=== PATIENT | male | born 1950 | race Caucasian/White ===

== ENCOUNTER 2017-08-17 17:13 | Emergency (ER) | payer OTHER ==
[2017-08-17] MEDS ORDERED: IPRATROPIUM/ALBUTEROL 3 ML DEYVIAL IH ONE (17:50)
--- NOTE | 2017-08-17 18:01 | EDPHY ---
H & P Stated Complaint: increasing cough/weakness Time Seen by Provider: 08/17/17 17:37 HPI/ROS: CHIEF COMPLAINT: Cough and dyspnea HISTORY OF PRESENT ILLNESS: The patient has a history of bronchiectasis. He was recently evaluated by a abstract maker in [facility] where he usually gets his primary care. He was prescribed an antibiotic at that point time. Patient states that over the past week he has had worsening dyspnea and ongoing cough. He complains of general malaise. The patient is scheduled to fly on Friday but does not feel as if he is strong enough to fly. He presents the ED seek documentation that he cannot fly and also re-evaluation of his current pulmonary condition. The patient denies recent use of albuterol. He denies recent hospitalizations. He has been on antibiotics intermittently for bronchiectasis. REVIEW OF SYSTEMS: A comprehensive 10 point review of systems is otherwise negative aside from elements mentioned in the history of present illness. Source: Patient Exam Limitations: No limitations - Personal History Current Tetanus/Diphtheria Vaccine: Unsure - Medical/Surgical History Hx Asthma: No Hx Chronic Respiratory Disease: Yes Hx Diabetes: No Hx Cardiac Disease: No Hx Renal Disease: No Hx Cirrhosis: No Hx Alcoholism: No Hx HIV/AIDS: No Hx Splenectomy or Spleen Trauma: No Other PMH: bronchiectasis - Social History Smoking Status: Never smoked - Physical Exam Exam: General Appearance: Thin male, no acute distress Eyes: Pupils equal and round no pallor or injection ENT, Mouth: Mucous membranes moist Respiratory: Faint crackles bilateral lung arenas Cardiovascular: Regular rate and rhythm Gastrointestinal: Abdomen is soft and nontender, no masses, bowel sounds normal Neurological: A&O, normal motor function, normal sensory exam, normal cranial nerves Skin: Warm and dry, no rashes Musculoskeletal: Neck is supple nontender Extremities: symmetrical, full range of motion Constitutional: Initial Vital Signs Temperature (C) 36.5 C 08/17/17 17:17 Heart Rate 69 08/17/17 17:17 Respiratory Rate 20 08/17/17 17:17 Blood Pressure 118/70 08/17/17 17:17 O2 Sat (%) 94 08/17/17 17:17 O2 Delivery Mode Room Air Allergies/Adverse Reactions: No Known Allergies Allergy (Unverified 08/17/17 17:16) Home Medications: Medication Instructions Recorded Albuterol [Ventolin Hfa Inhaler] 2 puffs IH QID PRN #1 mdi 08/17/17 Cefuroxime 08/17/17 levOFLOXACIN [Levaquin] 500 mg PO DAILY #10 tab 08/17/17 predniSONE [prednisone 20mg (RX)] 3 tab PO DAILY #15 tab 08/17/17 Medical Decision Making - Diagnostics Imaging Results: Imaging Impressions Chest X-Ray 08/17/17 17:50 Impression: 1. COPD. 2. Bilateral diffuse bronchitis/airways disease with probable superimposed pneumonitis. 3. Reticulonodular opacities in the right lung are suggested for which comparison with prior studies or follow-up CT chest is recommended. Findings and recommendations discussed with emergency department physician, Andres Thorne MD at 1846 hours on August 17, 2017. Final report concurs with initial preliminary interpretation. ED Course/Re-evaluation: The patient presents the ED with ongoing cough and dyspnea in the setting of known bronchiectasis. The patient was noted to be not hypoxic, afebrile with stable vital signs upon arrival. His chest x-ray demonstrates chronic lung disease with possible underlying pneumonia. The patient will be treated with prednisone, albuterol and switched to Levaquin. I have advised the patient to follow up with Pulmonary for a repeat examination in the next 2-3 weeks. The patient is advised to return to the emergency department for markedly worsening symptoms or other concerns. The patient is given the contact number of our local abstract maker. Differential Diagnosis: Differential diagnosis considered includes asthma, bronchitis, pneumonia - Data Points Medications Given: Discontinued Medications Albuterol/Ipratropium (Duoneb) 3 ml IH EDNOW ONE Stop: 08/17/17 17:51 Last Admin: 08/17/17 18:03 Dose: 3 ml Departure - Departure Disposition: Home, Routine, Self-Care Clinical Impression: Pneumonia, Bronchiectasis Condition: Good Instructions: Pneumonia (ED), Bronchiectasis (ED) Additional Instructions: 1. Please begin Levaquin instead of cefuroxime. 2. Prednisone as prescribed for next 5 days 3. Albuterol inhaler 2 puffs every 4 hr as needed. 4. You have been given the contact number of our local abstract maker if you would like to be evaluated. 5. Please return to the ED for markedly worsening symptoms or other concerns. Referrals: [facility] [Other] - As per Instructions Bi Feldman MD [Medical Doctor] - As per Instructions Prescriptions: Albuterol [Ventolin Hfa Inhaler] 2 puffs IH QID PRN #1 mdi PRN Reason: for shortness of breath levOFLOXACIN [Levaquin] 500 mg PO DAILY #10 tab predniSONE [prednisone 20mg (RX)] 3 tab PO DAILY #15 tab
[2017-08-17 19:13] VITALS: BP 109/70
== END 2017-08-17 19:46 | disposition home or self-care (01) ==
DX: J18.9 Pneumonia, unspecified organism (principal); J47.9 Bronchiectasis, uncomplicated